=== PATIENT | female | born 1945 | race Caucasian/White ===

== ENCOUNTER 2020-11-21 16:48 | Emergency (ER) | payer MEDICARE, OTHER ==
[~2020-11-21 16:48] MED LIST: BACTRIM DS TAB1 EACH PO; CALCIUM 1,0001 EACH PO; CITALOPRAM HBR40 MG PO; DITROPAN 5 MG TA5 MG PO; ENSURE ORIGINA237 ML PO; GLUCOPHAGE1000 MG PO; HYDROCODON-ACE1 EAC4 PO; LIPITOR TAB 1010 MG PO; LOSARTAN-HCTZ1 EACH PO; NAPROSYN EC 50500 MG PO; PROCARDIA XL30 MG PO; SYNTHROID75 MCG PO; WELLBUTRIN SR150 MG PO
== END 2020-11-21 19:43 | disposition home or self-care (01) ==
LOC: ER1 16:48
DX: S01.81XA Laceration without foreign body of other part of head, initial encounter (principal); W19.XXXA Unspecified fall, initial encounter
CPT/HCPCS: 12011; 70450; 99283

== ENCOUNTER → 2021-02-22 | Outpatient (CLI) | payer MEDICARE, OTHER | LOC: KOH-I 02-05 15:30 | DX: R40.4 Transient alteration of awareness (principal); J32.2 Chronic ethmoidal sinusitis; J32.0 Chronic maxillary sinusitis | CPT/HCPCS: 70551 ==

== ENCOUNTER 2022-02-28 17:27 | Emergency (ER) | payer MEDICARE, OTHER ==
[2022-02-28 18:21] LABS: HEMOGLOBIN 13.9 gm/dl (12.3-15.3); RED BLOOD COUNT 4.5 M/UL (4.00-5.10); WHITE BLOOD COUNT 6.1 K/UL (4.5-11.0)
== END 2022-02-28 22:25 | disposition home or self-care (01) ==
LOC: ER1 17:27
PROVIDERS: Nurse Practitioner
DX: M25.561 Pain in right knee (principal); M25.562 Pain in left knee; G89.29 Other chronic pain; E78.5 Hyperlipidemia, unspecified; I10 Essential (primary) hypertension; Z88.0 Allergy status to penicillin; Z87.891 Personal history of nicotine dependence
CPT/HCPCS: 0240U; 71045; 80053; 81001; 82550; 82553; 83605; 84484; 85025; 87040; 87077; 87086; 87186; 93005; 96361; 96374; 99285; J0696